=== PATIENT | male | born 1955 ===

== ENCOUNTER 2023-07-11 09:19 | Outpatient (AMB) | payer MEDICARE, SELFPAY ==
--- NOTE | 2023-07-11 09:45 | AM.OFFWIN_ITS ---
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 Reporting symptoms of sinus congestion, sore throat and difficulty swallowing. Low-grade fever. No family member is sick. No recent travel. Patient reports symptoms of malaise and fatigue. [facility] Patient Tobacco Use Status: Current everyday Tobacco user Physical Exam Vital Signs: Last Vital Signs Temp 97.8 F 07/11/23 09:47 Pulse 85 07/11/23 09:47 BP 118/70 07/11/23 09:47 Pulse Ox 96 07/11/23 09:47 BMI result Body Mass Index 31.7 Const General: cooperative and healthy appearing Nutritional Appearance: well nourished Orientation/consciousness: patient oriented x3 Limitations: no limitations HEENT Head: Yes normal to inspection Eyes General: appearance normal, both eyes and all related structures Neck Neck: Yes normal visual inspection Chest Chest palpation & inspection: normal palpation of entire chest wall Resp Effort & Inspection: normal respiratory effort Neuro General: patient oriented x3 Assessment & Plan Assessment & Plan (1) Upper respiratory tract infection: Code(s): J06.9 - Acute upper respiratory infection, unspecified Plan: Antibiotics ordered. Increase fluid intake. Tylenol for aches and pains. If symptoms worsen, follow-up here for a recheck. Coding Level of Care Code Est Pt Level 3 (45386) Diagnoses Upper respiratory tract infection J06.9
[2023-07-11 09:47] VITALS: BP 118/70; PULSE 85; TEMP 36.6; O2SAT 96; BMI 31.7
== END 2023-07-11 10:37 | disposition home or self-care (01) ==
PROVIDERS: Visit Provider Internal Medicine
DX: J06.9 Acute upper respiratory infection, unspecified (principal)
CPT/HCPCS: 99213

== ENCOUNTER 2025-07-18 09:11 | Outpatient (AMB) | payer MEDICARE, SELFPAY ==
[2025-07-18 09:41] VITALS: BP 128/70; PULSE 82; TEMP 36.7; O2SAT 94; BMI 17.9
--- NOTE | 2025-07-18 09:41 | AM.OFFWIN_ITS ---
Intake Vital Signs 07/18/25 09:41 Height 5 ft 10 in Weight 125 lb BMI 17.9 BP 128/70 Blood Pressure Location Lt brachial Position Sitting Pulse 82 Pulse Source Pulse Oximeter Temp 98.0 F Temp Source Oral Pulse Oximetry (%) 94 Oxygen Delivery Method Room Air Intake Visit Reasons: EP Sinus infection? Intake Note: pt presents with sinus congestion with bright green mucus with sinus pain/discomfort for 4 days Patient Tobacco Use Status: Current everyday Tobacco user Allergies No Known Allergies Allergy (Verified 07/18/25 09:43) Do you need a note to return to daycare/school/sports/work: No HPI HPI Comments History of Present Illness Details History of Present Illness The patient is a 69 year old individual presenting with upper respiratory symptoms. - The patient reports a 4-5 day history of cough, significant congestion, nasal drainage, and sputum production. - The patient denies fevers, nausea, vom iting, diarrhea, or difficulty breathing. - A few days ago, an episode of a severe coughing fit during sleep resulted in chest pain, which has since resolved. - The patient has been taking over-the-c ounter [place] Cold and Flu with minimal relief. - The patient denies any history of asth ma or COPD. - The patient denies being around anyone who has been sick recently. Review of Systems Constitutional: Negative for fevers, chills HENT: Reports cough, congestion, rhinorrhea, and ear pressure with popping. Denies sore throat or ear pain Respiratory:Reports cough. Negative for shortness of breath, chest tightness, wheezing Cardiac: Negative for chest pain Gastrointestinal: Negative for abdominal pain, nausea, vomiting, diarrhea, Musculoskeletal: Negative for myalgias Physical Exam General Appearance: Normal appearance, well developed. No acute distress ENT: External ears and ear canals normal. TM with middle ear effusions. No erythema or bulging. Nasal discharge and congestion present. No postnasal drip. Oropharynx clear with slight erythema, no exudate. Head: Normocephalic, atraumatic Pulmonary: No respiratory distress. Clear to auscultation bilaterally. Speaking in full sentences Cardiac: Regular rate and rhythm. No murmurs. Musculoskeletal: Moving all extremities spontaneously and against gravity Mental Status: Alert and Oriented x 3 Psychiatric: Normal mood. Normal affect. [facility] Social History Patient Tobacco Use Status: Current everyday Tobacco user Physical Exam Vital Signs: Last Vital Signs Temp 98.0 F 07/18/25 09:41 Pulse 82 07/18/25 09:41 BP 128/70 07/18/25 09:41 Pulse Ox 94 07/18/25 09:41 Oxygen Delivery Method Room Air 07/18/25 09:41 BMI result Body Mass Index 17.9 Assessment & Plan Assessment & Plan (1) Upper respiratory tract infection: Code(s): J06.9 - Acute upper respiratory infection, unspecified Qualifiers: URI type: unspecified URI Qualified Code(s): J06.9 - Acute upper respiratory infection, unspecified Plan -The patient's presentation of cough, congestion, sinus pain and mucus production for 4-5 days is most consistent with a viral upper respiratory infection. - COVID/flu/RSV test obtained -The ear pressure and popping are attributed to eustachian tube dysfunction secondary to the URI. - Prescribed Flonase (intranasal steroid) once a day to each nostril to reduce inflammation in the nasal passages and eustachian tubes. The patient was counseled that it may take several days for the medication to take effect. The patient denies any history of glaucoma. - Recommended [id number] Zyrtec or Laura to help with drainage - Patient requesting an antibiotic to help with symptoms, discussed symptoms appear most consistent with a viral URI and antibiotics are unlikely to be helpful. Augmentin prescribed in the case that symptoms persist for more than 10 days due to concern for potential sinus infection. Advised to take antibiotic with food if started and to take antibiotic for full course. -if new or worsening symptoms such as fevers, shortness of breath, chest pain, recommended re-evaluation. Patient was informed and verbally consented to the use of an ambient scribe for clinic note documentation during the visit. Orders: Orders SARS-CoV2/FLU/RSV 07/18/25 R09.89 - Other specified symptoms and signs involving the circulatory and respiratory systems Medications: New fluticasone propionate 50 mcg/actuation administer into each nostril 1 spray intranasal Q24H 16 grams 0RF amoxicillin-pot clavulanate 875-125 mg 1 tab PO Q12H 10 tabs 0RF Patient Instructions: Get lots of rest. Maintain good clear fluid intake to stay well hydrated. Please practice frequent handwashing to prevent spread of germs. Please avoid exposure to tobacco smoke and/or polluted air. You can use flonase along with Zyrtec or Laura to help with drainage and pressure in the ears You may also try a saline nasal spray or room humidification to help with congestion. OTC mucinex may also help. Take tylenol as needed for fever or aches, dosage according to package directions If sinus symptoms do not improve after a total of 10 days, you may take antibiotic as prescribed. Take antibiotic with food. If you develop worsening cough, chest pain, shortness of breath, fevers, or chills, please return to the walk in or follow up with PCP. Coding Level of Care Code Est Pt Level 3 (49827) Diagnoses Upper respiratory tract infection, unspecified type J06.9 URI type: unspecified URI
== END 2025-07-18 10:27 | disposition home or self-care (01) ==
PROVIDERS: PCP Internal Medicine; Visit Provider Family Medicine
DX: J06.9 Acute upper respiratory infection, unspecified (principal)

== ENCOUNTER 2025-07-18 09:11 | Outpatient (REF) | payer MEDICARE, SELFPAY | END 2025-07-18 09:12 | disposition home or self-care (01) | LOC: HO.LNP 09:11 | PROVIDERS: PCP Internal Medicine | DX: R09.81 Nasal congestion (principal); R05.9 Cough, unspecified; R09.3 Abnormal sputum; R09.89 Other specified symptoms and signs involving the circulatory and respiratory systems; J34.89 Other specified disorders of nose and nasal sinuses; F17.200 Nicotine dependence, unspecified, uncomplicated | CPT/HCPCS: 87637; 99212 ==